=== PATIENT | male | born 1990 | race African-American/Black ===

== ENCOUNTER 2018-06-05 12:03 | Emergency (ER) | payer MEDICARE, MEDICAID ==
[~2018-06-05] VITALS: Ht 185.4 cm; Wt 119.0 kg
[2018-06-05 12:15] VITALS: BP 163/101
[2018-06-05] MEDS ORDERED: ALBU6.7H INH (13:15)
== END 2018-06-05 13:30 | disposition home or self-care (01) ==
LOC: ER 12:04
DX: J06.9 Acute upper respiratory infection, unspecified (principal); Z79.899 Other long term (current) drug therapy
CPT/HCPCS: 99283

== ENCOUNTER 2020-02-15 09:43 | Emergency (ER) | payer MEDICARE, MEDICAID ==
[~2020-02-15] VITALS: Ht 185.4 cm; Wt 147.8 kg
[~2020-02-15 09:43] MED LIST: ALBU6.7H9 INH
[2020-02-15] MEDS ORDERED: LIDOcaine 5% patch TP ONE (10:45)
[2020-02-15] MEDS ORDERED: NAPR-56 PO (10:52)
[2020-02-15 11:06] VITALS: BP 140/70
== END 2020-02-15 11:08 | disposition home or self-care (01) ==
LOC: ER 09:44
DX: M54.5 Low back pain (principal); Z79.899 Other long term (current) drug therapy
CPT/HCPCS: 99282

== ENCOUNTER 2020-03-05 11:31 | Emergency (ER) | payer MEDICARE, MEDICAID ==
[~2020-03-05] VITALS: Ht 185.4 cm; Wt 145.4 kg
[~2020-03-05 11:31] MED LIST changes: +NAPR-56 PO
[2020-03-05 11:35] VITALS: BP 165/86
[2020-03-05 12:44] LABS: CLARITY,URINE CLEAR (Clear); COLOR,URINE STRAW (Yellow); GLUCOSE, URINE NEGATIVE (Neg); KETONES,URINE NEGATIVE (Neg); LEUKOCYTE ESTERASE ,URINE NEGATIVE (Neg); NITRITES, URINE NEGATIVE (Neg); OCCULT BLOOD,URINE NEGATIVE (Neg); PH,URINE 6.5 (4.8-8.0); PROTEIN,URINE NEGATIVE (Neg); UROBILINOGEN,URINE 0.2 E.U/dL (0.2-1.0)
[2020-03-05 12:48] LABS: UA COLLECTION TYPE CLN CATCH MIDSTREAM
== END 2020-03-05 13:13 | disposition home or self-care (01) ==
LOC: ER 11:32
DX: N39.44 Nocturnal enuresis (principal); F20.9 Schizophrenia, unspecified; F41.9 Anxiety disorder, unspecified; F32.9 Major depressive disorder, single episode, unspecified; Z87.01 Personal history of pneumonia (recurrent); Z79.899 Other long term (current) drug therapy
CPT/HCPCS: 81003; 99283

== ENCOUNTER 2020-06-26 17:17 | Emergency (ER) | payer MEDICARE, MEDICAID ==
[~2020-06-26] VITALS: Ht 185.4 cm; Wt 145.4 kg
[~2020-06-26 17:17] MED LIST changes: -NAPR-56 PO
[2020-06-26 17:59] VITALS: BP 170/104
[2020-06-26] MEDS ORDERED: IBUP-1984 PO (18:51)
== END 2020-06-26 19:07 | disposition home or self-care (01) ==
LOC: ER 17:18
DX: M79.641 Pain in right hand (principal); F41.9 Anxiety disorder, unspecified; F32.9 Major depressive disorder, single episode, unspecified; F20.9 Schizophrenia, unspecified; Z87.01 Personal history of pneumonia (recurrent); Z79.899 Other long term (current) drug therapy
CPT/HCPCS: 29125; 73110; 99284

== ENCOUNTER 2021-10-03 00:38 | Emergency (ER) | payer MEDICARE, MEDICAID ==
[~2021-10-03] VITALS: Ht 185.4 cm; Wt 136.8 kg
[2021-10-03 00:42] VITALS: BP 158/106
[2021-10-03] MEDS ORDERED: LIT300C PO (21:46)
[2021-10-03] MEDS ORDERED: LEVO50TA8 PO (21:46)
[2021-10-03] MEDS ORDERED: ARIP15TA19 PO (21:46)
[2021-10-03] MEDS ORDERED: PARO40TA4 PO (21:46)
[2021-10-03] MEDS ORDERED: PALI9TAB PO (21:46)
[2021-10-03] MEDS ORDERED: DIVA250T15 PO (21:46)
[2021-10-03] MEDS ORDERED: CLON1TAB95 PO (21:46)
[2021-10-03] MEDS ORDERED: PALI3TAB PO (21:46)
[2021-10-03] MEDS ORDERED: TOPI25TA15 PO (21:46)
== END 2021-10-03 03:28 | disposition left against medical advice (07) ==
LOC: ER 00:39
DX: F41.9 Anxiety disorder, unspecified (principal); Z53.21 Procedure and treatment not carried out due to patient leaving prior to being seen by health care provider

== ENCOUNTER 2021-10-03 19:44 | Emergency (ER) | payer MEDICARE, MEDICAID ==
[~2021-10-03] VITALS: Ht 185.4 cm; Wt 131.8 kg
[2021-10-03 20:08] VITALS: BP 166/105
[2021-10-03] MEDS ORDERED: bacitracin 15gm ointment TP ONE (20:35)
[2021-10-03 20:54] LABS: BASOPHILS # (AUTO) 0.1 X10'3 (0-0.2); BASOPHILS % (AUTO) 0.6 % (0-1); EOSINOPHILS # (AUTO) 0.1 X10'3 (0-0.9); EOSINOPHILS % (AUTO) 0.9 % (0-6); HEMOGLOBIN 16.4 g/dl (14.0-17.9); LYMPHOCYTES # (AUTO) 2.6 X10'3 (1.1-4.8); LYMPHOCYTES % (AUTO) 21.5 % (21-51); MEAN CORPUSCULAR HEMOGLOBIN 29.7 PG (27.0-31.0); MEAN CORPUSCULAR HGB CONC 34.1 g/dL (33.0-36.5); MEAN CORPUSCULAR VOLUME 86.9 FL (78-98); MONOCYTES # (AUTO) 0.7 X10'3 (0-0.9); MONOCYTES % (AUTO) 6.3 % (2-12); NEUTROPHILS # (AUTO) 8.4 X10'3 (1.8-7.7); NEUTROPHILS % (AUTO) 70.7 % (42-75); PLATELET COUNT 359 X10'3 (140-440); RED BLOOD COUNT 5.52 X10'6 (4.70-6.10); WHITE BLOOD COUNT 11.9 X10'3 (4.5-11.0)
[2021-10-03 21:04] LABS: ALANINE AMINOTRANSFERASE 46 U/L (12-78); ALBUMIN 4.5 G/DL (3.4-5.0); ALBUMIN/GLOBULIN RATIO 1.1 (1.1-1.5); ALKALINE PHOSPHATASE 51 IU/L (46-116); ANION GAP 9 (8-16); ASPARTATE AMINO TRANSFERASE 19 U/L (10-37); BILIRUBIN,TOTAL 1.3 MG/DL (0.1-1.0); BLOOD UREA NITROGEN 10 MG/DL (7-18); BUN/CREATININE RATIO 7.6 (5.4-32.0); CALCIUM 9.4 MG/DL (8.5-10.1); CHLORIDE 104 MMOL/L (99-107); CREATININE 1.31 MG/DL (0.60-1.10); ETHANOL < 0.010 GM/DL (0.0-0.010); GLUCOSE 92 MG/DL (70-104); POTASSIUM 4.4 MMOL/L (3.5-5.1); SODIUM 139 MMOL/L (135-145); TOTAL CARBON DIOXIDE 25.7 MMOL/L (24-32); TOTAL PROTEIN 8.5 G/DL (6.4-8.2); eGFR 78 ML/MIN
--- NOTE | 2021-10-03 21:04 | NUR ---
PT. UNSURE OF DOSAGE FOR MEDS. WAITING FOR PARENTS TO ARRIVE TO DO MED REC.
[2021-10-03 21:05] LABS: URINE AMPHETAMINE SCREEN NEGATIVE (Neg); URINE BARBITUATE SCREEN NEGATIVE (Neg); URINE BENZODIAZEPINES SCREEN NEGATIVE (Neg); URINE CANNABINOID SCREEN NEGATIVE (Neg); URINE COCAINE SCREEN NEGATIVE (Neg); URINE METHADONE SCREEN NEGATIVE (Neg); URINE OPIATE SCREEN NEGATIVE (Neg); URINE PHENCYCLIDINE SCREEN NEGATIVE (Neg)
[2021-10-03] MEDS ORDERED: LIT300C PO (21:46)
[2021-10-03] MEDS ORDERED: PARO40TA4 PO (21:46)
[2021-10-03] MEDS ORDERED: LEVO50TA8 PO (21:46)
[2021-10-03] MEDS ORDERED: ARIP15TA19 PO (21:46)
[2021-10-03] MEDS ORDERED: DIVA250T15 PO (21:46)
[2021-10-03] MEDS ORDERED: PALI3TAB PO (21:46)
[2021-10-03] MEDS ORDERED: PALI9TAB PO (21:46)
[2021-10-03] MEDS ORDERED: CLON1TAB95 PO (21:46)
[2021-10-03] MEDS ORDERED: TOPI25TA15 PO (21:46)
[2021-10-03] MEDS ORDERED: clonazePAM 1mg tablet PO PRN (22:55)
[2021-10-03] MEDS ORDERED: diphenhydrAMINE 25mg capsule PO ONE (23:00)
[2021-10-03] MEDS ORDERED: LORazepam 2 mg/ml vial IM ONE (23:00)
[2021-10-03] MEDS ORDERED: olanzapine 10mg tablet PO SCH (23:00)
--- NOTE | 2021-10-04 06:34 | NUR ---
RECEIVED REPORT FROM RAJNI RIOS
--- NOTE | 2021-10-04 06:59 | NUR ---
PACKET FAXED TO [facility]
[2021-10-04] MEDS ORDERED: levoTHYROXINE 25mcg tablet PO SCH (08:00)
[2021-10-04] MEDS ORDERED: PALIPERIDONE 3 MG TAB.ER.24 PO SCH ×2 (08:00)
[2021-10-04] MEDS ORDERED: divalproex 250mg tablet, delayed-release PO SCH ×3 (08:00→20:00)
[2021-10-04] MEDS ORDERED: ARIPIPRAZOLE 15 MG TABLET PO SCH (08:00)
[2021-10-04] MEDS ORDERED: PARoxetine 20mg tablet PO SCH (08:00)
[2021-10-04] MEDS ORDERED: lithium carbonate 300mg SR tablet (LithoBID) PO SCH (08:00)
[2021-10-04] MEDS ORDERED: topiramate 25mg tablet PO SCH (08:00)
[2021-10-04] MEDS ORDERED: divalproex 250mg tablet, delayed-release PO ONE (08:35)
== END 2021-10-04 10:09 | disposition home or self-care (01) ==
LOC: ER 19:44
DX: S01.83XA Puncture wound without foreign body of other part of head, initial encounter (principal); Z20.822 Contact with and (suspected) exposure to COVID-19; Z91.51 Personal history of suicidal behavior; F41.9 Anxiety disorder, unspecified; F32.A Depression, unspecified; F20.9 Schizophrenia, unspecified; Z87.01 Personal history of pneumonia (recurrent); Z79.899 Other long term (current) drug therapy; X74.01XA Intentional self-harm by airgun, initial encounter; Y93.89 Activity, other specified; Y92.89 Other specified places as the place of occurrence of the external cause; Y99.8 Other external cause status
CPT/HCPCS: 36415; 80053; 80305; 80320; 85025; 96372; 99285; J2060; Q0163

== ENCOUNTER 2021-11-04 23:31 | Emergency (ER) | payer MEDICARE, MEDICAID ==
[~2021-11-04] VITALS: Ht 185.4 cm; Wt 131.8 kg
[~2021-11-04 23:31] MED LIST changes: +ARIP15TA19 PO; +CLON1TAB95 PO; +DIVA250T15 PO; +LEVO50TA8 PO; +LIT300C PO; +PALI3TAB PO; +PALI9TAB PO; +PARO40TA4 PO; +TOPI25TA15 PO
[2021-11-04 23:36] VITALS: BP 126/90
== END 2021-11-05 01:39 | disposition left against medical advice (07) ==
LOC: ER 23:31
DX: F41.9 Anxiety disorder, unspecified (principal); Z53.21 Procedure and treatment not carried out due to patient leaving prior to being seen by health care provider

== ENCOUNTER 2021-11-12 01:00 | Emergency (ER) | payer MEDICARE, MEDICAID ==
[~2021-11-12] VITALS: Ht 185.4 cm; Wt 131.8 kg
[2021-11-12 01:41] VITALS: BP 125/84
--- NOTE | 2021-11-12 01:50 | NUR ---
PT NOW SAYING, "I JUST NEED TO DIP OUT", SAYS HE JUST WANTED TO TALK TO A NURSE, TALK TO SOMEONE
== END 2021-11-12 06:13 | disposition left against medical advice (07) ==
LOC: ER 01:00
DX: F29 Unspecified psychosis not due to a substance or known physiological condition (principal); Z53.21 Procedure and treatment not carried out due to patient leaving prior to being seen by health care provider

== ENCOUNTER 2021-12-02 11:22 | Inpatient (IN) | payer MEDICARE, MEDICAID ==
[~2021-12-02] VITALS: Ht 190.5 cm; Wt 120.0 kg
[2021-12-02] MEDS ORDERED: famotidine/PF 10 mg/ml inj IV ONE (11:35)
[2021-12-02] MEDS ORDERED: charcoal, activated 50 GM/240 ML bottle PO ONE (11:35)
[2021-12-02] MEDS ORDERED: normal saline 1000ML IV soln IV ONE (11:35)
[2021-12-02] MEDS ORDERED: ondansetron/PF 4mg/2ml inj IV ONE ×2 (11:35→13:40)
[2021-12-02 11:51] LABS: BASOPHILS # (AUTO) 0.1 X10'3 (0-0.2); BASOPHILS % (AUTO) 0.7 % (0-1); EOSINOPHILS # (AUTO) 0.3 X10'3 (0-0.9); EOSINOPHILS % (AUTO) 2.5 % (0-6); HEMATOCRIT 49.2 % (42.0-52.0); HEMOGLOBIN 16.9 g/dl (14.0-17.9); LYMPHOCYTES # (AUTO) 3.9 X10'3 (1.1-4.8); LYMPHOCYTES % (AUTO) 37.6 % (21-51); MEAN CORPUSCULAR HEMOGLOBIN 30.2 PG (27.0-31.0); MEAN CORPUSCULAR HGB CONC 34.4 g/dL (33.0-36.5); MEAN CORPUSCULAR VOLUME 87.7 FL (78-98); MEAN PLATELET VOLUME 7.8 FL (7.4-10.4); MONOCYTES # (AUTO) 0.9 X10'3 (0-0.9); MONOCYTES % (AUTO) 8.7 % (2-12); NEUTROPHILS # (AUTO) 5.3 X10'3 (1.8-7.7); NEUTROPHILS % (AUTO) 50.5 % (42-75); PLATELET COUNT 335 X10'3 (140-440); RED BLOOD COUNT 5.61 X10'6 (4.70-6.10); RED CELL DISTRIBUTION WIDTH 13.2 % (11.5-14.5); WHITE BLOOD COUNT 10.5 X10'3 (4.5-11.0)
--- NOTE | 2021-12-02 11:54 | NUR ---
POISON CONTROL CALLED. PT HAD TAKEN APPROX 20-30 300MG LITHIUM TABLETS AT APPROX 1030 THIS AM PER POISON CONTROL: *WATCH FOR CONFUSION/ALOC *DO NOT GIVE ACTIVATED CHARCOLE AT THIS TIME, LITHIUM WILL NOT BIND TO THE CHARCOLE AT THIS EARLY STAGE. *CHECK LITHIUM LEVEL NOW AND AGAIN IN 2-3 HRS. *GIVEN IV OF NS TO ELEVATE SODIUM LEVELS NEEDED *CONSIDER DIALYSIS IF PT IS ALTERED AND LITHIUM LEVELS ARE ELEVATED. LABS:CBC, CMP, ETOH, LITHIUM/TYLEYOL/IBUPROPHEN LEVELS
[2021-12-02] MEDS ORDERED: PEG 3350/Na sulf,bicarb,Cl/KCl oral sol 4 liter bottle PO ONE ×2 (12:00→15:50)
[2021-12-02 12:10] LABS: ALANINE AMINOTRANSFERASE 46 U/L (12-78); ALBUMIN 4.6 G/DL (3.4-5.0); ALBUMIN/GLOBULIN RATIO 1.1 (1.1-1.5); ALKALINE PHOSPHATASE 68 IU/L (46-116); ANION GAP 10 (8-16); ASPARTATE AMINO TRANSFERASE 15 U/L (10-37); BILIRUBIN,TOTAL 0.7 MG/DL (0.1-1.0); BLOOD UREA NITROGEN 7 MG/DL (7-18); CALCIUM 9.4 MG/DL (8.5-10.1); CHLORIDE 107 MMOL/L (99-107); CREATININE 1.17 MG/DL (0.60-1.10); GLUCOSE 93 MG/DL (70-104); POTASSIUM 4.3 MMOL/L (3.5-5.1); SODIUM 143 MMOL/L (135-145); TOTAL CARBON DIOXIDE 26.5 MMOL/L (24-32); TOTAL PROTEIN 8.8 G/DL (6.4-8.2); eGFR 89 ML/MIN
[2021-12-02 12:19] LABS: CREATINE KINASE 99 U/L (39-308); ETHANOL < 0.010 GM/DL (0.0-0.010); MAGNESIUM 2.2 MG/DL (1.5-2.4)
[2021-12-02 12:33] LABS: ACETAMINOPHEN < 2.0 UG/ML (10-30)
[2021-12-02] MEDS ORDERED: magnesium hydroxide 30ml (MOM) UD suspension PO PRN (13:10)
[2021-12-02] MEDS ORDERED: magnesium 2GM in 50ml NS 50 ML IV PRN (13:10)
[2021-12-02] MEDS ORDERED: acetaminophen 325mg tablet PO PRN ×2 (13:10)
[2021-12-02] MEDS ORDERED: ondansetron/PF 4mg/2ml inj IV PRN (13:10)
[2021-12-02] MEDS ORDERED: magnesium 4gm in 100ml NS 100 ML IV PRN (13:10)
[2021-12-02] MEDS ORDERED: mag hydrox/Alum hydrox/simeth 30ml oral suspension PO PRN (13:10)
[2021-12-02] MEDS ORDERED: potassium CL 10mEq/100ml bag 100 ML IV PRN (13:10)
[2021-12-02] MEDS ORDERED: POTASSIUM BICARB 20meq eff tab 20 MEQ TABLET.EFF PO PRN ×2 (13:10)
[2021-12-02] MEDS ORDERED: magnesium Cl slow-release 64mg tablet PO PRN (13:10)
--- NOTE | 2021-12-02 13:58 | NUR ---
PER HOSPITALIST, EKG EVERY 4 HOURS AND LITHIUM LEVELS EVERY 2 HOURS FOR 24 HOURS
[2021-12-02 14:39] LABS: ALANINE AMINOTRANSFERASE 47 U/L (12-78); ALBUMIN 4.2 G/DL (3.4-5.0); ALBUMIN/GLOBULIN RATIO 1.1 (1.1-1.5); ALKALINE PHOSPHATASE 55 IU/L (46-116); ANION GAP 8 (8-16); ASPARTATE AMINO TRANSFERASE 17 U/L (10-37); BILIRUBIN,TOTAL 0.6 MG/DL (0.1-1.0); BLOOD UREA NITROGEN 7 MG/DL (7-18); BUN/CREATININE RATIO 5.5 (5.4-32.0); CALCIUM 8.9 MG/DL (8.5-10.1); CHLORIDE 106 MMOL/L (99-107); CREATININE 1.28 MG/DL (0.60-1.10); GLUCOSE 90 MG/DL (70-104); POTASSIUM 3.7 MMOL/L (3.5-5.1); SODIUM 140 MMOL/L (135-145); eGFR 80 ML/MIN
[2021-12-02] MEDS ORDERED: LURA80TA2 PO (15:32)
[2021-12-02] MEDS ORDERED: LITH300C PO (15:32)
[2021-12-02] MEDS ORDERED: TRAZ-251 PO (15:32)
--- NOTE | 2021-12-02 15:32 | NUR ---
POISON CONTROL CALLED FOR F/U; PT HAS HAD 3 L NS, LITHIUM LEVEL 2.7 TO 3.8 AND HAS HAD GO LIGHTLY RECOMMENDATIONS; *CONTINUE GO LIGHTLY; 1-2 LITERS/HR UNTIL STOOL RUNS CLEAR *MONITOR BOWEL SOUNDS HOURLY *CONTINUE TO MONITOR VS/I&O, SUPPORTIVE CARE *LITHIUM LEVELS WITH CHEMISTRIES Q2 HRS UNTIL DOWN TRENING SEEN x2 *IF LITHIUM LEVEL IS >4-5 WITH SEIZURE, ALOC OR IMPAIRED KIDNEY FUNCTION CONSIDER DIALYSIS
--- NOTE | 2021-12-02 15:38 | NUR ---
PAGER ID: [phone] MESSAGE: [phone], Andrey can i get a sitter order for suicidal ideation/intent and do you want iv fluids?? jesús [phone]
[2021-12-02] MEDS ORDERED: PARO20TA6 PO (16:55)
[2021-12-02] MEDS ORDERED: DIVA500T9 PO (16:55)
[2021-12-02] MEDS ORDERED: ARIP30TA22 PO (16:55)
[2021-12-02] MEDS ORDERED: HALO1TAB PO (16:55)
--- NOTE | 2021-12-02 17:59 | NUR ---
Critical lab [place] 2.9 Value aware.
[2021-12-02 19:05] LABS: CLARITY,URINE CLEAR (Clear); COLOR,URINE YELLOW (Yellow); GLUCOSE, URINE NEGATIVE (Neg); KETONES,URINE NEGATIVE (Neg); LEUKOCYTE ESTERASE ,URINE NEGATIVE (Neg); NITRITES, URINE NEGATIVE (Neg); OCCULT BLOOD,URINE NEGATIVE (Neg); PROTEIN,URINE NEGATIVE (Neg); UROBILINOGEN,URINE 0.2 E.U/dL (0.2-1.0)
[2021-12-02 19:06] LABS: UA COLLECTION TYPE CLN CATCH MIDSTREAM
[2021-12-02 19:17] LABS: URINE AMPHETAMINE SCREEN NEGATIVE (Neg); URINE BARBITUATE SCREEN NEGATIVE (Neg); URINE BENZODIAZEPINES SCREEN NEGATIVE (Neg); URINE CANNABINOID SCREEN NEGATIVE (Neg); URINE COCAINE SCREEN NEGATIVE (Neg); URINE METHADONE SCREEN NEGATIVE (Neg); URINE OPIATE SCREEN NEGATIVE (Neg); URINE PHENCYCLIDINE SCREEN NEGATIVE (Neg)
[2021-12-02] MEDS: K and/or MAG REPLACEMENT MC SCH (20:00)
[2021-12-02] MEDS: docusate sod 100mg capsule PO SCH (20:00)
[2021-12-02] MEDS: sodium chloride 0.45% 1,000 ML IV SCH (20:15)
--- NOTE | 2021-12-02 20:31 | NUR ---
Mother Franciscoly Vero can be contacted at [phone] with any questions or concerns in regards to patients care.
--- NOTE | 2021-12-02 21:38 | NUR ---
DR YOUNG CALLED TO CHECK PT'S LATEST LITHIUM LEVEL, WAS GIVEN RESULT OF 2.5, TRENDING DOWNWARD
[2021-12-02 22:29] LABS: ALANINE AMINOTRANSFERASE 38 U/L (12-78); ALBUMIN 4.1 G/DL (3.4-5.0); ALBUMIN/GLOBULIN RATIO 1.2 (1.1-1.5); ALKALINE PHOSPHATASE 46 IU/L (46-116); ANION GAP 11 (8-16); ASPARTATE AMINO TRANSFERASE 17 U/L (10-37); BILIRUBIN,TOTAL 0.8 MG/DL (0.1-1.0); BLOOD UREA NITROGEN 8 MG/DL (7-18); BUN/CREATININE RATIO 6.7 (5.4-32.0); CALCIUM 9.2 MG/DL (8.5-10.1); CHLORIDE 108 MMOL/L (99-107); GLUCOSE 80 MG/DL (70-104); POTASSIUM 4.2 MMOL/L (3.5-5.1); SODIUM 145 MMOL/L (135-145); TOTAL CARBON DIOXIDE 26.1 MMOL/L (24-32); TOTAL PROTEIN 7.4 G/DL (6.4-8.2); eGFR 87 ML/MIN
--- NOTE | 2021-12-02 22:56 | NUR ---
patients blood glucose level 80 for last CMP resulted. provided patient with two containers of apple juice. denies any difficulty with swallowing. able to remain alert with no assistance. will continue to monitor
[2021-12-03] MEDS ORDERED: dextrose 50%-water 50ml dispensing syringe IV PRN ×2 (00:40)
[2021-12-03] MEDS ORDERED: DEXTROSE 15 GM of carb/4 tabs (each vial/BOTTLE has 4 tablets) PO PRN ×2 (00:40)
[2021-12-03] MEDS ORDERED: glucagon, human recombinant 1mg kit SUBCUT PRN (00:40)
--- NOTE | 2021-12-03 00:51 | NUR ---
contacted Dr. Jacobson in regards to patients blood sugar dropping from 80 to 71 after receiving two containers of juice. MD advised me to put in hypoglycemia protocol. confirmed with patient that he is not diabetic. will administer D50 but MD advisement. Will continue to monitor patient.
[2021-12-03] MEDS: sodium chloride 0.45% 1,000 ML IV SCH ×3 (03:28→13:49)
[2021-12-03 03:54] LABS: MAGNESIUM 2.2 MG/DL (1.5-2.4)
--- NOTE | 2021-12-03 06:30 | NUR ---
Assumed care of pt from [facility].
--- NOTE | 2021-12-03 07:00 | NUR ---
Pt awake in no acute distress,reports feeling better, encouraged pt to continue to drink golytley to lower lithium levels, pt verbalized ok. Pt continues to be monitored.
--- NOTE | 2021-12-03 07:00 | NUR ---
Blood collected for [place] level, taken to lab by tech.
[2021-12-03] MEDS: K and/or MAG REPLACEMENT MC SCH (08:00)
[2021-12-03] MEDS ORDERED: enoxaparin 40mg/0.4ml syringe SUBCUT SCH (08:00)
[2021-12-03] MEDS: docusate sod 100mg capsule PO SCH (08:34)
--- NOTE | 2021-12-03 11:38 | NUR ---
Pt awake , reports feeling better
[2021-12-03 14:12] VITALS: BP 134/92
--- NOTE | 2021-12-03 14:14 | NUR ---
Pt continues to be monitored , disposition pending.
[2021-12-03] MEDS ORDERED: ARIPIPRAZOLE 15 MG TABLET PO SCH (20:00)
[2021-12-03] MEDS ORDERED: haloperidol 1mg tablet PO SCH (20:00)
[2021-12-03] MEDS ORDERED: lithium carbonate 150mg capsule PO SCH (20:00)
[2021-12-03] MEDS ORDERED: topiramate 25mg tablet PO SCH (20:00)
[2021-12-03] MEDS ORDERED: divalproex sodium 500mg tablet.DR PO SCH (20:00)
[2021-12-03] MEDS ORDERED: traZODone 50mg tablet PO SCH (21:00)
[2021-12-04] MEDS ORDERED: clonazePAM 1mg tablet PO SCH (08:00)
[2021-12-04] MEDS ORDERED: PARoxetine 20mg tablet PO SCH (08:00)
[2021-12-04] MEDS ORDERED: levoTHYROXINE 25mcg tablet PO SCH (08:00)
[2021-12-04] MEDS ORDERED: lurasidone 20mg tablet PO SCH (08:00)
== END 2021-12-03 23:48 | disposition home or self-care (01) | DRG 918 ==
LOC: ER 11:22 → ED HOLD 13:15
PROVIDERS: ADMIT Internal Medicine; ATTEND Internal Medicine
DX: T43.592A Poisoning by other antipsychotics and neuroleptics, intentional self-harm, initial encounter (principal); F20.9 Schizophrenia, unspecified; E66.01 Morbid (severe) obesity due to excess calories; R11.2 Nausea with vomiting, unspecified; Z20.822 Contact with and (suspected) exposure to COVID-19; F31.9 Bipolar disorder, unspecified; F41.9 Anxiety disorder, unspecified; Y92.89 Other specified places as the place of occurrence of the external cause; Z87.11 Personal history of peptic ulcer disease; Z68.33 Body mass index [BMI] 33.0-33.9, adult; Z79.899 Other long term (current) drug therapy
CPT/HCPCS: 36415; 71045; 80053; 80178; 80305; 80320; 80329; 81003; 82550; 82948; 83735; 84132; 84145; 84443; 85025; 87811; 93005; 96361; 96374; 99291; 99292; G0378; J1650; J2405; J3490; J7030

== ENCOUNTER 2021-12-03 14:29 | Inpatient (IN) | payer MEDICARE, MEDICAID ==
[~2021-12-03] VITALS: Ht 188 cm; Wt 133.1 kg
[~2021-12-03 14:29] MED LIST changes: -ALBU6.7H9 INH; -ARIP15TA19 PO; +ARIP30TA22 PO; -DIVA250T15 PO; +DIVA500T9 PO; +HALO1TAB PO; -LIT300C PO; +LITH300C PO; +LURA80TA2 PO; -PALI3TAB PO; -PALI9TAB PO; +PARO20TA6 PO; -PARO40TA4 PO; +TRAZ-251 PO
--- NOTE | 2021-12-03 17:19 | NUR ---
[facility], Danielle, evaluating patient. Patient's parents also at bedside.
--- NOTE | 2021-12-03 19:24 | NUR ---
One to one with the patient who was pleasant and cooperative with the assessment. He ate 100% of his dinner and he denies problems with his appetite. He admits that he attempted suicide by taking an overdose but when asked why he stated, "My illness and stuff like that. Maybe just feeling like a nobody" He denied that he is hearing voices. Discussed plan for him being transferred to a psychiatric hospital when a placement can be located by [facility].
--- NOTE | 2021-12-03 20:15 | NUR ---
The patient is resting on his bed. Dr. Rowell reviewed his medications and orders received and faxed to pharmacy.
--- NOTE | 2021-12-03 21:33 | NUR ---
med rec refaxed to pharmacy. The patient is currently sleeping
[2021-12-03] MEDS: topiramate 25mg tablet PO SCH (22:00)
[2021-12-03] MEDS: aripiprazole 5mg tablet PO SCH (22:00)
[2021-12-03] MEDS: haloperidol 1mg tablet PO SCH (22:00)
[2021-12-03] MEDS: traZODone 50mg tablet PO SCH (22:00)
[2021-12-03] MEDS: divalproex sod 250mg ER (24-hour) tablet PO SCH (22:01)
--- NOTE | 2021-12-03 22:30 | NUR ---
The patient appears to be sleeping
--- NOTE | 2021-12-04 00:05 | NUR ---
The patient appears to be sleeping
--- NOTE | 2021-12-04 01:13 | NUR ---
The patient appears to be sleeping
--- NOTE | 2021-12-04 02:42 | NUR ---
The patient appears to be sleeping
--- NOTE | 2021-12-04 04:00 | NUR ---
Patient up to the bathroom and is now back in bed.
--- NOTE | 2021-12-04 05:28 | NUR ---
The patient appears to be sleeping
--- NOTE | 2021-12-04 06:45 | NUR ---
Pt resting in bed with eyes closed. Pt noted repositioning self in bed and in no observable distress.
--- NOTE | 2021-12-04 06:50 | NUR ---
Pt request for phone use, reminded pt phone use available after 0800 per policy.
[2021-12-04] MEDS: lurasidone 20mg tablet PO SCH (07:49)
[2021-12-04] MEDS: lurasidone 60mg tablet PO SCH (07:49)
[2021-12-04] MEDS: PARoxetine 20mg tablet PO SCH (07:49)
[2021-12-04] MEDS: clonazePAM 1mg tablet PO SCH (07:49)
[2021-12-04] MEDS: levoTHYROXINE 25mcg tablet PO SCH (07:49)
[2021-12-04] MEDS: topiramate 25mg tablet PO SCH ×2 (07:49→21:19)
[2021-12-04] MEDS: divalproex sod 250mg ER (24-hour) tablet PO SCH ×2 (07:49→21:19)
[2021-12-04] MEDS: aripiprazole 5mg tablet PO SCH ×2 (07:49→21:19)
[2021-12-04] MEDS: haloperidol 1mg tablet PO SCH ×2 (07:49→21:19)
[2021-12-04] MEDS ORDERED: LITHIUM CARBONATE PO SCH (08:00)
[2021-12-04] MEDS ORDERED: loperamide 2mg capsule PO PRN (10:35)
[2021-12-04] MEDS ORDERED: magnesium hydroxide 30ml (MOM) UD suspension PO PRN (10:35)
[2021-12-04] MEDS ORDERED: acetaminophen 325mg tablet PO PRN ×2 (10:35)
[2021-12-04] MEDS ORDERED: mag hydrox/Alum hydrox/simeth 30ml oral suspension PO PRN (10:35)
--- NOTE | 2021-12-04 10:40 | NUR ---
Admission note: Pt admitted to [place] [facility] today on 5150 for DTS from our ER at 0958. Pt stated he took 20 [place] pills trying to kill himself. Pt has been having suicidal thoughts since June. Pt has history of Bipolar and Schizophrenia.
[2021-12-04 20:00] VITALS: BP 151/88
[2021-12-04] MEDS: traZODone 50mg tablet PO SCH (21:19)
--- NOTE | 2021-12-05 05:16 | NUR ---
Admission note: Pt admitted to [place] [facility] today on 5150 for DTS from our ER at 0958. Pt stated he took 20 [place] pills trying to kill himself. Pt has been having suicidal thoughts since June. Pt has history of Bipolar and Schizophrenia. Response:Patient newly admitted to [facility] from ED overflow for OD. He was in good spirit at the beginning of shift. Pleasant towards other clients and walking in hallways. Watched TV and took PM medications. Receptive to patient care including assessments. He denies any SI and states that he feel better. He tends to have scattered thoughts. Slept through the night.
[2021-12-05] MEDS: lurasidone 60mg tablet PO SCH (07:25)
[2021-12-05] MEDS: lurasidone 20mg tablet PO SCH (07:25)
[2021-12-05] MEDS: divalproex sod 250mg ER (24-hour) tablet PO SCH ×2 (07:25→20:03)
[2021-12-05] MEDS: PARoxetine 20mg tablet PO SCH (07:25)
[2021-12-05] MEDS: aripiprazole 5mg tablet PO SCH ×2 (07:25→20:02)
[2021-12-05] MEDS: haloperidol 1mg tablet PO SCH ×2 (07:25→20:02)
[2021-12-05] MEDS: clonazePAM 1mg tablet PO SCH (07:25)
[2021-12-05] MEDS: levoTHYROXINE 25mcg tablet PO SCH (07:26)
[2021-12-05] MEDS: topiramate 25mg tablet PO SCH ×2 (07:26→20:01)
[2021-12-05 07:49] VITALS: BP 126/76
[2021-12-05 08:53] LABS: HEMOGLOBIN A1C 5.3 % (4.5-6.2)
[2021-12-05 09:19] LABS: CHOL/HDL RATIO 5.4 (0.00-4.99); CHOLESTEROL 188 MG/DL (0-200); HDL CHOLESTEROL 35 MG/DL (35-60); LDL CHOLESTEROL 107 MG/DL (50-100); TRIGLYCERIDES 240 MG/DL (20-135)
--- NOTE | 2021-12-05 17:15 | NUR ---
Nursing Progress Note: Problem : Pt admitted to [place] [facility] today on 5150 for DTS from our ER at 0958. Pt stated he took 20 [place] pills trying to kill himself. Pt has been having suicidal thoughts since June. Pt has history of Bipolar and Schizophrenia. Interventions : Introduced self and established rapport, ensured contract for safety, maintained a safe and supportive environment, provided clear and simple instructions, provided active listening and positive encouragement, and maintained Q 15min safety checks. Response : Received pt. sleeping in bed at the beginning of the shift, he awoke and was observed to be sitting in the hallway interacting and laughing with others. Pt. attended breakfast in the Group Room and 1:1 was completed afterwards at bedside. Pt. presents as cooperative, restless, and becomes labile at intervals. He perseverates on his desire to discharge and states in a somewhat hypomanic manner, "I feel great! I don't need to be here." He continued on to talk about his parents with whom he lives and his brother who lives in [facility]. When questioned regarding S/I, pt. denied this and stated, "No, I was just feeling jealous of my brother. He has a passion and I don't." Pt. then began to talk in a tangental manner about how he has a "Tickle Fetish." He asked this filing writer to tickle him, and required education on the inappropriateness of this request. Pt. became downcast and slightly irritable and stated in a child-like manner, "I didn't know that." Pt. remained up throughout the day and continued to appear somewhat restless, wearing headphones at intervals. In the afternoon, pt. became increasingly irritable after a conversation with his family on the telephone regarding his desire to discharge. He was able to be redirected and sat in his room tearful before returning back onto the unit. Plan : Pt. continues to require medication adjustments and a safe and supportive environment.
[2021-12-05 19:00] VITALS: BP 137/73
[2021-12-05] MEDS: traZODone 50mg tablet PO SCH (20:02)
--- NOTE | 2021-12-06 05:41 | NUR ---
Nursing Progress Note: Problem : Pt admitted to [place] [facility] today on 5150 for DTS from our ER at 0958. Pt stated he took 20 [place] pills trying to kill himself. Pt has been having suicidal thoughts since June. Pt has history of Bipolar and Schizophrenia. Interventions : Introduced self and established rapport, ensured contract for safety, maintained a safe and supportive environment, provided clear and simple instructions, provided active listening and positive encouragement, and maintained Q 15min safety checks. Response : ambulating in hallway at shift change; pleasant, wearing green scrubs; cooperative when doing physical assessment; took all routine scheduled meds; laughing at times for no reason which bothered his room mate. Plan : Pt. continues to require medication adjustments and a safe and supportive environment.
[2021-12-06] MEDS: levoTHYROXINE 25mcg tablet PO SCH (07:45)
[2021-12-06] MEDS: clonazePAM 1mg tablet PO SCH (07:46)
[2021-12-06] MEDS: divalproex sod 250mg ER (24-hour) tablet PO SCH ×2 (07:46→20:10)
[2021-12-06] MEDS: PARoxetine 20mg tablet PO SCH (07:46)
[2021-12-06] MEDS: haloperidol 1mg tablet PO SCH ×2 (07:46→20:10)
[2021-12-06] MEDS: aripiprazole 5mg tablet PO SCH ×2 (07:46→20:10)
[2021-12-06] MEDS: topiramate 25mg tablet PO SCH ×2 (07:47→20:10)
[2021-12-06 07:48] LABS: ANION GAP 9 (8-16); BLOOD UREA NITROGEN 9 MG/DL (7-18); BUN/CREATININE RATIO 7.8 (5.4-32.0); CALCIUM 9.3 MG/DL (8.5-10.1); CHLORIDE 106 MMOL/L (99-107); CREATININE 1.16 MG/DL (0.60-1.10); GLUCOSE 98 MG/DL (70-104); POTASSIUM 4.1 MMOL/L (3.5-5.1); SODIUM 142 MMOL/L (135-145); TOTAL CARBON DIOXIDE 26.6 MMOL/L (24-32); eGFR 90 ML/MIN
[2021-12-06 08:00] VITALS: BP 130/75
[2021-12-06] MEDS: lurasidone 60mg tablet PO SCH (08:32)
[2021-12-06] MEDS: lurasidone 20mg tablet PO SCH (08:32)
--- NOTE | 2021-12-06 17:04 | NUR ---
Nursing Progress Note: Problem: [facility]150 for DTS from our ER at 0958. Pt stated he took 20 [place] pills trying to kill himself. Pt has been having suicidal thoughts since June. Pt has history of Bipolar and Schizophrenia. Interventions: Received patient while he was awake and walking around in the hallway. Patient asked many questions to multiple staff members that were inappropriate and in no way related to the particular staff member that he was asking. One of the questions was aimed at a female nurse and he was observed asking Did you ever find out the answer to your question about orgasms? The nurse informed him no, and told him she never asked that type of question to anyone. Patient continued to ask other staff member question that were not as inappropriate, but clearly not ones that they had asked him at any time. Patient would laugh after each time he asked a question. Patient has had intrusive behavior most of the day, asking over and over inappropriate questions, or when I or another staff member had answered his questions, he would ask them over and over again. Patients parents came to visiting hours at 10:00 am. Parents requested to speak to me and informed me that he was [facility], at [facility], and has a [employer] Technician named Johanna Roldan who comes over once weekly. Patients father, Marcos, asked if a Savings Teller and Patients Provider can call him at [phone]. Both Keily and Brook were sent emails requesting a return phone call to the patients father Marcos. Response: Patient can be inappropriate in his accusations and intrusive today. This is the first time I have cared for this patient. Email sent to Brook and Keily, Social Workers, as I do not know who is assigned to this patients case. Patient was changed from a 5150 to a 5250 today. Plan: Pt. continues to require medication adjustments and a safe and supportive environment.
[2021-12-06 19:47] VITALS: BP 141/88
[2021-12-06] MEDS: traZODone 50mg tablet PO SCH (20:10)
--- NOTE | 2021-12-07 03:09 | NUR ---
Nursing Progress Note: Luis Problem: Pt admitted to [place] [facility] today on 5150 for DTS from our ER at 0958. Pt stated he took 20 [place] [employer] pills trying to kill himself. Pt has been having suicidal thoughts since June. Pt has history of Bipolar and Schizophrenia. Interventions: Introduced self and established rapport, ensured contract for safety, maintained a safe and supportive environment, provided clear and simple instructions, provided active listening and positive encouragement, and maintained Q 15min safety checks. Response: Pt in rec room watching TV at change of shift. Pt cooperative with care, denies all MH symptoms. Pt up for snacks and took all HS medications. Pt smiles and laughs at inappropriate times while standing in the hallway. Plan: Pt. continues to require medication adjustments and a safe and supportive environment.
[2021-12-07] MEDS: haloperidol 1mg tablet PO SCH (07:58)
[2021-12-07] MEDS: divalproex sod 250mg ER (24-hour) tablet PO SCH (07:58)
[2021-12-07] MEDS: aripiprazole 5mg tablet PO SCH (07:58)
[2021-12-07] MEDS: levoTHYROXINE 25mcg tablet PO SCH (07:58)
[2021-12-07] MEDS: topiramate 25mg tablet PO SCH (07:59)
[2021-12-07] MEDS: lurasidone 60mg tablet PO SCH (07:59)
[2021-12-07] MEDS: lurasidone 20mg tablet PO SCH (07:59)
[2021-12-07] MEDS: clonazePAM 1mg tablet PO SCH (07:59)
[2021-12-07] MEDS: PARoxetine 20mg tablet PO SCH (07:59)
[2021-12-07 08:00] VITALS: BP 157/97
--- NOTE | 2021-12-07 12:04 | NUR ---
DCP Presenting Issues: Pt's 5150 has , attending PA will discuss Vol status w/pt and request dcp support for pt. Per MDT consultation, pt needs greater support than what he currently has, attending PA recommends GH placement. Requesting dcp support for pt. Interventions: Clinician had t/c w/pt's [employer] workerStefanie [phone] to gather info re pt's support in the home. Per t/c, pt is only authorized for 12hrs of services/week from [employer]. Clinician advocated for additional support for pt and was re-directed to pt's [facility]'s supervisor volunteer services at [phone] Jossy Nugent, left vm re pt's needs for additional support and possibly consideration for GH placement. Pt's father called and informed clinician that family would like to take pt home today and the mother will stay w/pt for awhile. Clinician had t/c with [facility] & coordinated a post-hospital f/u for pt. Attending PA was informed. Plan: Pt possibly d/c-ing today. Keily Díaz LCSW Addendum: 12/07/21 at 1246 by Keily Díaz SS Amended: Links added.
--- NOTE | 2021-12-07 12:54 | NUR ---
DCP Presenting Issues: Per consultation w/attending PA, pt will be d/c-ing today. Interventions: Clinician had t/c w/pt's mother and finalized dcp, per t/c mother will berry picker at 3pm. Family will ensure pt attends his post-hospital appointment and f/u with [facility]. Plan: Pt to d/c to family this afternoon. Keily Díaz LCSW Addendum: 12/07/21 at 1258 by Keily Díaz SS Amended: Links added.
== END 2021-12-07 15:03 | disposition home or self-care (01) | DRG 885 ==
LOC: ER 14:30 → ADULT MH 12-04 08:00
PROVIDERS: ADMIT Psychiatry & Neurology Psychiatry; ATTEND Psychiatry & Neurology Psychiatry
DX: F29 Unspecified psychosis not due to a substance or known physiological condition (principal); T43.592A Poisoning by other antipsychotics and neuroleptics, intentional self-harm, initial encounter; F20.9 Schizophrenia, unspecified; F41.9 Anxiety disorder, unspecified; E03.9 Hypothyroidism, unspecified; F42.9 Obsessive-compulsive disorder, unspecified; E78.5 Hyperlipidemia, unspecified; F31.9 Bipolar disorder, unspecified; Z87.01 Personal history of pneumonia (recurrent); Z87.11 Personal history of peptic ulcer disease; Z91.51 Personal history of suicidal behavior; Z56.0 Unemployment, unspecified; Y92.89 Other specified places as the place of occurrence of the external cause; Z79.899 Other long term (current) drug therapy
CPT/HCPCS: 36415; 80048; 80061; 80164; 83036; 87081; 99285; J7030

== ENCOUNTER 2022-01-14 20:18 | Emergency (ER) | payer MEDICARE, MEDICAID ==
[~2022-01-14] VITALS: Ht 185.4 cm; Wt 131.0 kg
[~2022-01-14 20:18] MED LIST changes: -LITH300C PO
[2022-01-14 20:28] VITALS: BP 145/82
--- NOTE | 2022-01-14 21:40 | NUR ---
pt stated he feels better and he was going to leave. md informed
== END 2022-01-14 21:42 | disposition left against medical advice (07) ==
LOC: ER 20:19
DX: R12 Heartburn (principal); Z53.21 Procedure and treatment not carried out due to patient leaving prior to being seen by health care provider

== ENCOUNTER 2022-01-22 21:16 | Emergency (ER) | payer MEDICARE, MEDICAID ==
[~2022-01-22] VITALS: Ht 185.4 cm; Wt 131.8 kg
[2022-01-22 21:24] VITALS: BP 178/91
== END 2022-01-22 23:02 | disposition left against medical advice (07) ==
LOC: ER 21:16
DX: R06.02 Shortness of breath (principal); Z53.21 Procedure and treatment not carried out due to patient leaving prior to being seen by health care provider
CPT/HCPCS: 93005

== ENCOUNTER 2022-07-19 20:18 | Emergency (ER) | payer MEDICARE, MEDICAID ==
[~2022-07-19] VITALS: Ht 185.4 cm; Wt 148.2 kg
[2022-07-19 20:52] VITALS: BP 143/106
== END 2022-07-19 22:04 | disposition left against medical advice (07) ==
LOC: ER 20:19
DX: Z04.6 Encounter for general psychiatric examination, requested by authority (principal); Z53.21 Procedure and treatment not carried out due to patient leaving prior to being seen by health care provider
CPT/HCPCS: 99281

== ENCOUNTER 2022-07-31 00:07 | Emergency (ER) | payer MEDICARE, MEDICAID ==
[~2022-07-31] VITALS: Ht 185.4 cm; Wt 145.4 kg
[2022-07-31 00:13] VITALS: BP 165/107
== END 2022-07-31 01:30 | disposition left against medical advice (07) ==
LOC: ER 00:08
DX: F41.0 Panic disorder [episodic paroxysmal anxiety] (principal); Z53.21 Procedure and treatment not carried out due to patient leaving prior to being seen by health care provider
CPT/HCPCS: 99281

== ENCOUNTER 2022-08-01 10:56 | Emergency (ER) | payer MEDICARE, MEDICAID ==
[~2022-08-01] VITALS: Ht 185.4 cm; Wt 150.0 kg
[2022-08-01 11:03] VITALS: BP 150/103
== END 2022-08-01 11:50 | disposition home or self-care (01) ==
LOC: ER 10:57
DX: E66.9 Obesity, unspecified (principal); F20.9 Schizophrenia, unspecified; Z79.899 Other long term (current) drug therapy; Z79.1 Long term (current) use of non-steroidal anti-inflammatories (NSAID); Z79.2 Long term (current) use of antibiotics
CPT/HCPCS: 99281

== ENCOUNTER 2023-10-08 05:58 | Emergency (ER) | payer MEDICARE, MEDICAID ==
[~2023-10-08] VITALS: Ht 185.4 cm; Wt 125.8 kg
[~2023-10-08 05:58] MED LIST changes: -ARIP30TA22 PO; +CHOL100046 PO; -CLON1TAB95 PO; +CLOZ25TA12 PO; -DIVA500T9 PO; -HALO1TAB PO; +LIT300C PO; -TRAZ-251 PO
[2023-10-08 06:26] VITALS: TEMP 97.5
[2023-10-08 07:38] VITALS: BP 137/109; PULSE 101; RESP 18; O2SAT 95
[2023-10-08] MEDS ORDERED: CLON0.1T2 PO (07:38)
[2023-10-08] MEDS ORDERED: HYDR50TA65 PO (07:38)
[2023-10-08] MEDS: hydrOXYzine 25 MG tablet PO ONE (07:39)
[2023-10-08] MEDS: cloNIDine 0.1 mg tablet PO ONE (07:39)
== END 2023-10-08 08:24 | disposition home or self-care (01) ==
LOC: ER 05:58
DX: F41.9 Anxiety disorder, unspecified (principal); F32.A Depression, unspecified; F20.9 Schizophrenia, unspecified; Z72.89 Other problems related to lifestyle; Z79.899 Other long term (current) drug therapy
CPT/HCPCS: 99283; Q0177